=== PATIENT | male | born 1940 | race Caucasian/White ===

== ENCOUNTER 2016-10-22 17:54 | Emergency (ER) | payer OTHER, MEDICAID ==
[~2016-10-22] VITALS: Ht 152.4 cm; Wt 67.6 kg
[2016-10-22 21:04] LABS: BASOPHIL % 0.6 % (0-2); PLATELET COUNT 215 x10^3mcL (130-400)
[2016-10-22 21:05] LABS: RED CELL DISTRIBUTION WIDTH 14.7 % (11.5-14.5)
[2016-10-22 21:17] LABS: CALCIUM 8.6 mg/dL (8.5-10.1); CARBON DIOXIDE 27.1 mmol/L (21-32); CHLORIDE SERUM 104 mmol/L (98-107); CREATININE SERUM 1.9 mg/dL (0.7-1.3); GLUCOSE SERUM 220 mg/dL (74-106); POTASSIUM SERUM 3.9 mmol/L (3.5-5.1); SODIUM SERUM 141 mmol/L (136-145)
[2016-10-22 21:21] LABS: ALBUMIN 3.4 g/dL (3.4-5.0); ALKALINE PHOSPHATASE 147 U/L (46-116); ALT/SGPT 30 U/L (16-63); AMYLASE 43 U/L (25-115); AST/SGOT 16 U/L (15-37); BILIRUBIN TOTAL 0.3 mg/dL (0.20-1.00); LIPASE 139 IU/L (73-393); TOTAL PROTEIN, SERUM 7.4 g/dL (6.4-8.2)
[2016-10-22 21:26] LABS: UA SPECIFIC GRAVITY >=1.030 (1.005-1.035); microscopic required? YES; urine erythrocyte TRACE (NEGATIVE)
[2016-10-23 01:05] VITALS: BP 164/83
== END 2016-10-23 01:05 | disposition home or self-care (01) ==
LOC: ED 17:54
PROVIDERS: Emergency Medicine
DX: R51 Headache (principal); R10.32 Left lower quadrant pain; M79.1 Myalgia; E11.9 Type 2 diabetes mellitus without complications; I10 Essential (primary) hypertension
CPT/HCPCS: 36415

== ENCOUNTER 2016-11-29 16:35 | Emergency (ER) | payer OTHER, MEDICAID ==
[2016-11-29 19:23] VITALS: BP 195/94
== END 2016-11-29 19:23 | disposition home or self-care (01) ==
LOC: ED 16:35
DX: S62.613A Displaced fracture of proximal phalanx of left middle finger, initial encounter for closed fracture (principal); S62.615A Displaced fracture of proximal phalanx of left ring finger, initial encounter for closed fracture; I10 Essential (primary) hypertension; E11.9 Type 2 diabetes mellitus without complications; Z86.79 Personal history of other diseases of the circulatory system; W01.0XXA Fall on same level from slipping, tripping and stumbling without subsequent striking against object, initial encounter; Y93.89 Activity, other specified; Y99.8 Other external cause status; Y92.89 Other specified places as the place of occurrence of the external cause
CPT/HCPCS: Q0092

== ENCOUNTER 2016-12-09 18:33 | Emergency (ER) | payer OTHER, MEDICAID ==
[~2016-12-09] VITALS: Ht 157.5 cm; Wt 69.8 kg
[2016-12-09 21:03] LABS: BASOPHIL % 0.4 % (0-2); PLATELET COUNT 245 x10^3mcL (130-400); RED CELL DISTRIBUTION WIDTH 13.1 % (11.5-14.5)
[2016-12-09 21:16] LABS: CALCIUM 9.1 mg/dL (8.5-10.1); CARBON DIOXIDE 28.3 mmol/L (21-32); CHLORIDE SERUM 100 mmol/L (98-107); CREATININE SERUM 1.2 mg/dL (0.7-1.3); GLUCOSE SERUM 255 mg/dL (74-106); POTASSIUM SERUM 4.4 mmol/L (3.5-5.1); SODIUM SERUM 136 mmol/L (136-145)
[2016-12-10 00:04] VITALS: BP 147/80
== END 2016-12-10 00:04 | disposition home or self-care (01) ==
LOC: ED 18:33
PROVIDERS: Emergency Medicine Emergency Medical Services
DX: I16.0 Hypertensive urgency (principal); I10 Essential (primary) hypertension; E11.9 Type 2 diabetes mellitus without complications; Z79.84 Long term (current) use of oral hypoglycemic drugs
CPT/HCPCS: J3490

== ENCOUNTER 2017-08-13 09:16 | Inpatient (IN) | payer OTHER ==
[~2017-08-13] VITALS: Ht 167.6 cm; Wt 64.0 kg
[2017-08-13 09:25] VITALS: Ht 167.6 cm; Wt 64.0 kg
[2017-08-13 10:43] LABS: BASOPHIL % 0.3 % (0-2); PLATELET COUNT 229 x10^3mcL (130-400); RED CELL DISTRIBUTION WIDTH 13.4 % (11.5-14.5)
[2017-08-13 10:51] LABS: CARBON DIOXIDE 27.2 mmol/L (21-32); CHLORIDE SERUM 102 mmol/L (98-107); CREATININE SERUM 1.1 mg/dL (0.7-1.3); GLUCOSE SERUM 226 mg/dL (74-106); SODIUM SERUM 142 mmol/L (136-145)
[2017-08-13 10:54] LABS: ALKALINE PHOSPHATASE 180 U/L (46-116); AST/SGOT 24 U/L (15-37); BILIRUBIN TOTAL 0.42 mg/dL (0.20-1.00)
[2017-08-13 11:04] LABS: ALT/SGPT 31 U/L (16-63)
[2017-08-13 11:36] LABS: microscopic required? YES; urine erythrocyte TRACE (NEGATIVE)
[2017-08-13 13:18] VITALS: BP 196/101
[2017-08-13 13:46] LABS: CHOLESTEROL/HDL RATIO 4.3; MAGNESIUM 1.5 mg/dL (1.8-2.4); PHOSPHOROUS 4.4 mg/dL (2.5-4.9)
[2017-08-13 14:00] LABS: T3 TOTAL 0.95 ng/mL
[2017-08-13 14:15] LABS: FREE T4 1.1 ng/dL (0.76-1.46); FREE THYROXINE INDEX 2.4 ug/dL (1.4-4.5); T4(THYROXINE) 7.3 ug/dL (4.7-13.3)
[2017-08-13] MEDS ORDERED: LOSARTAN POTASS50 M1 PO (14:23)
[2017-08-13] MEDS ORDERED: METFORMIN HCL850 MG PO (14:24)
[2017-08-13 14:50] VITALS: BP 115/79
[2017-08-13] MEDS ORDERED: GABAPENTIN100 M2 PO (15:19)
[2017-08-13] MEDS ORDERED: VITAMIN D32000 I2 PO (15:21)
[2017-08-13] MEDS ORDERED: APAP500 MG PO (15:24)
[2017-08-13] MEDS ORDERED: LIPI10 PO (15:25)
[2017-08-13 16:30] VITALS: BP 177/86
[2017-08-13 17:22] VITALS: BP 156/83
[2017-08-13 20:27] VITALS: BP 160/81
[2017-08-14 05:32] VITALS: BP 149/84
[2017-08-14 06:18] LABS: BASOPHIL % 0.8 % (0-2); PLATELET COUNT 226 x10^3mcL (130-400)
[2017-08-14 06:27] LABS: CALCIUM 8.7 mg/dL (8.5-10.1); CARBON DIOXIDE 27.9 mmol/L (21-32); CHLORIDE SERUM 107 mmol/L (98-107); GLUCOSE SERUM 118 mg/dL (74-106); MAGNESIUM 1.6 mg/dL (1.8-2.4); PHOSPHOROUS 4.8 mg/dL (2.5-4.9); SODIUM SERUM 145 mmol/L (136-145)
[2017-08-14 09:36] VITALS: BP 157/76
[2017-08-14 13:24] VITALS: BP 159/80
[2017-08-14] MEDS ORDERED: LOSARTAN POTASS50 M1 PO (13:47)
[2017-08-14] MEDS ORDERED: GLIPIZIDE2.5 M1 PO (13:48)
[2017-08-14] MEDS ORDERED: METFORMIN HCL850 MG PO (13:48)
== END 2017-08-14 15:49 | disposition home or self-care (01) | DRG 77 ==
LOC: ED 09:16 → DU 12:08
PROVIDERS: Emergency Medicine; Family Medicine
DX: I67.4 Hypertensive encephalopathy (principal); N17.0 Acute kidney failure with tubular necrosis; E87.1 Hypo-osmolality and hyponatremia; D68.59 Other primary thrombophilia; E83.42 Hypomagnesemia; G90.8 Other disorders of autonomic nervous system; E11.65 Type 2 diabetes mellitus with hyperglycemia; E11.42 Type 2 diabetes mellitus with diabetic polyneuropathy; I10 Essential (primary) hypertension; R80.9 Proteinuria, unspecified; D64.9 Anemia, unspecified; E78.1 Pure hyperglyceridemia; Z68.25 Body mass index [BMI] 25.0-25.9, adult; Z79.84 Long term (current) use of oral hypoglycemic drugs
CPT/HCPCS: 82962; 83880; 84439; J0696; J3490; J7030; Q0092

== ENCOUNTER 2017-08-20 11:40 | Inpatient (IN) | payer OTHER ==
[~2017-08-20] VITALS: Ht 162.6 cm; Wt 73.1 kg
[~2017-08-20 11:40] MED LIST: APAP500 MG PO; GABAPENTIN100 M2 PO; GLIPIZIDE2.5 M1 PO; LIPI10 PO; LOSARTAN POTASS50 M1 PO; METFORMIN HCL850 MG PO; VITAMIN D32000 I2 PO
[2017-08-20 11:44] VITALS: Ht 162.6 cm; Wt 73.1 kg
[2017-08-20 12:37] LABS: PLATELET COUNT 215 x10^3mcL (130-400); RED CELL DISTRIBUTION WIDTH 13.7 % (11.5-14.5)
[2017-08-20 12:49] LABS: ALKALINE PHOSPHATASE 126 U/L (46-116); ALT/SGPT 21 U/L (16-63); AST/SGOT 28 U/L (15-37); BILIRUBIN TOTAL 0.4 mg/dL (0.20-1.00); CALCIUM 7.4 mg/dL (8.5-10.1); CHLORIDE SERUM 95 mmol/L (98-107); GLUCOSE SERUM 149 mg/dL (74-106); HDL CHOLESTEROL 38 mg/dL (40-60); LIPASE 136 IU/L (73-393); SODIUM SERUM 134 mmol/L (136-145); TOTAL PROTEIN, SERUM 6.6 g/dL (6.4-8.2); TRIGLYCERIDES 145 mg/dL (<150)
[2017-08-20 12:50] LABS: BASOPHIL % 0 % (0-2)
[2017-08-20 13:02] LABS: T3 TOTAL 0.52 ng/mL
[2017-08-20 13:09] LABS: CARBON DIOXIDE 7.6 mmol/L (21-32); CHOLESTEROL 108 mg/dL (<200); CHOLESTEROL/HDL RATIO 2.8; POTASSIUM SERUM 5.7 mmol/L (3.5-5.1)
[2017-08-20 13:18] LABS: FREE T4 0.9 ng/dL (0.76-1.46)
[2017-08-20 13:23] LABS: FREE THYROXINE INDEX 1.4 ug/dL (1.4-4.5); T4(THYROXINE) 4.4 ug/dL (4.7-13.3)
[2017-08-20] MEDS ORDERED: NEU300 PO (13:58)
[2017-08-20] MEDS ORDERED: PAIN & FEVER500 MG PO (13:59)
[2017-08-20] MEDS ORDERED: VITAMIN D32000 I2 PO (14:01)
[2017-08-20] MEDS ORDERED: GOOD SENSE ASPI81 M3 (14:01)
[2017-08-20 17:08] LABS: CALCIUM 8.3 mg/dL (8.5-10.1); CARBON DIOXIDE 11.7 mmol/L (21-32); CHLORIDE SERUM 97 mmol/L (98-107); GLUCOSE SERUM 163 mg/dL (74-106); POTASSIUM SERUM 5.2 mmol/L (3.5-5.1); SODIUM SERUM 137 mmol/L (136-145)
[2017-08-20 17:27] LABS: CREATININE SERUM 8.9 mg/dL (0.7-1.3)
[2017-08-20 18:32] VITALS: BP 133/70
[2017-08-20 19:45] VITALS: BP 113/57
[2017-08-20 20:06] LABS: MAGNESIUM 2.7 mg/dL (1.8-2.4)
[2017-08-20 20:47] LABS: PHOSPHOROUS 11.9 mg/dL (2.5-4.9)
[2017-08-20 23:56] VITALS: BP 165/94
[2017-08-21 03:33] VITALS: BP 163/90
[2017-08-21 05:51] LABS: CALCIUM 7.3 mg/dL (8.5-10.1); CARBON DIOXIDE 29.5 mmol/L (21-32); CHLORIDE SERUM 100 mmol/L (98-107); GLUCOSE SERUM 96 mg/dL (74-106); MAGNESIUM 1.7 mg/dL (1.8-2.4); PHOSPHOROUS 5.6 mg/dL (2.5-4.9); POTASSIUM SERUM 3.2 mmol/L (3.5-5.1); SODIUM SERUM 142 mmol/L (136-145)
[2017-08-21 05:54] LABS: CREATININE SERUM 5.3 mg/dL (0.7-1.3)
[2017-08-21 06:24] LABS: BASOPHIL % 0.3 % (0-2); PLATELET COUNT 176 x10^3mcL (130-400); RED CELL DISTRIBUTION WIDTH 13.9 % (11.5-14.5)
[2017-08-21 08:00] VITALS: BP 167/94
[2017-08-21 12:00] VITALS: BP 166/73
[2017-08-21 18:29] LABS: UA SPECIFIC GRAVITY 1.015 (1.005-1.035); microscopic required? YES; urine erythrocyte 3+ (NEGATIVE)
[2017-08-21 18:35] LABS: CALCIUM 7.2 mg/dL (8.5-10.1); CARBON DIOXIDE 33.2 mmol/L (21-32); CHLORIDE SERUM 98 mmol/L (98-107); GLUCOSE SERUM 123 mg/dL (74-106); POTASSIUM SERUM 3.9 mmol/L (3.5-5.1); SODIUM SERUM 140 mmol/L (136-145)
[2017-08-21 18:39] LABS: CREATININE SERUM 6.4 mg/dL (0.7-1.3)
[2017-08-21 18:46] LABS: AMPHETAMINE QUAL UR NONE DETECTED (See below)
[2017-08-21 20:38] VITALS: BP 161/81
[2017-08-21 23:41] VITALS: BP 135/74
[2017-08-22 03:03] VITALS: BP 154/87
[2017-08-22 05:02] LABS: PLATELET COUNT 183 x10^3mcL (130-400); RED CELL DISTRIBUTION WIDTH 14.2 % (11.5-14.5)
[2017-08-22 05:06] LABS: BASOPHIL % 0 % (0-2)
[2017-08-22 05:16] LABS: CARBON DIOXIDE 27.5 mmol/L (21-32); CHLORIDE SERUM 97 mmol/L (98-107); GLUCOSE SERUM 192 mg/dL (74-106); MAGNESIUM 2.2 mg/dL (1.8-2.4); PHOSPHOROUS 6.6 mg/dL (2.5-4.9); POTASSIUM SERUM 4.7 mmol/L (3.5-5.1); SODIUM SERUM 138 mmol/L (136-145)
[2017-08-22 05:22] LABS: CREATININE SERUM 7.2 mg/dL (0.7-1.3)
[2017-08-22 07:58] VITALS: BP 121/62
[2017-08-22 12:20] VITALS: BP 148/70
[2017-08-22 19:45] VITALS: BP 137/73
[2017-08-22 23:15] VITALS: BP 139/50
[2017-08-23 03:15] VITALS: BP 148/74
[2017-08-23 05:25] LABS: BASOPHIL % 1.2 % (0-2); PLATELET COUNT 183 x10^3mcL (130-400); RED CELL DISTRIBUTION WIDTH 13.8 % (11.5-14.5)
[2017-08-23 05:35] LABS: CALCIUM 7.3 mg/dL (8.5-10.1); CARBON DIOXIDE 27.6 mmol/L (21-32); CHLORIDE SERUM 100 mmol/L (98-107); GLUCOSE SERUM 186 mg/dL (74-106); MAGNESIUM 1.9 mg/dL (1.8-2.4); PHOSPHOROUS 4.6 mg/dL (2.5-4.9); SODIUM SERUM 136 mmol/L (136-145)
[2017-08-23 08:25] VITALS: BP 97/69
[2017-08-23 13:30] VITALS: BP 134/63
[2017-08-23 16:37] VITALS: BP 150/69
[2017-08-23 19:35] VITALS: BP 130/71
[2017-08-24 06:04] VITALS: BP 128/66
[2017-08-24 06:23] LABS: CALCIUM 7.7 mg/dL (8.5-10.1); CARBON DIOXIDE 28.9 mmol/L (21-32); CHLORIDE SERUM 97 mmol/L (98-107); GLUCOSE SERUM 158 mg/dL (74-106); MAGNESIUM 2.8 mg/dL (1.8-2.4); PHOSPHOROUS 5.4 mg/dL (2.5-4.9); POTASSIUM SERUM 3.7 mmol/L (3.5-5.1); SODIUM SERUM 136 mmol/L (136-145)
[2017-08-24 06:55] LABS: CREATININE SERUM 7.6 mg/dL (0.7-1.3)
[2017-08-24 07:01] LABS: BASOPHIL % 0.3 % (0-2); PLATELET COUNT 193 x10^3mcL (130-400); RED CELL DISTRIBUTION WIDTH 13.7 % (11.5-14.5)
[2017-08-24 08:00] VITALS: BP 150/60
[2017-08-24 13:18] VITALS: BP 143/66
[2017-08-24 17:40] VITALS: BP 144/76
[2017-08-24 20:35] VITALS: BP 161/77
[2017-08-25 05:46] VITALS: BP 161/73
[2017-08-25 05:50] VITALS: BP 159/82
[2017-08-25 06:34] LABS: BASOPHIL % 0.3 % (0-2); PLATELET COUNT 206 x10^3mcL (130-400); RED CELL DISTRIBUTION WIDTH 13.5 % (11.5-14.5)
[2017-08-25 06:55] LABS: CALCIUM 7.6 mg/dL (8.5-10.1); CARBON DIOXIDE 31.1 mmol/L (21-32); CHLORIDE SERUM 101 mmol/L (98-107); GLUCOSE SERUM 131 mg/dL (74-106); MAGNESIUM 2.1 mg/dL (1.8-2.4); PHOSPHOROUS 4.2 mg/dL (2.5-4.9); POTASSIUM SERUM 3.9 mmol/L (3.5-5.1); SODIUM SERUM 141 mmol/L (136-145)
[2017-08-25 07:00] LABS: CREATININE SERUM 5.9 mg/dL (0.7-1.3)
[2017-08-25 09:50] VITALS: BP 167/76
[2017-08-25 13:38] VITALS: BP 142/73
[2017-08-25 16:24] VITALS: BP 145/68
[2017-08-25 20:49] LABS: CK-BB 0 % (0); CK-MB 5 % (0-3); CK-MM 95 % (97-100); MACRO TYPE 1 0 % (Not Observed); MACRO TYPE 2 0 % (Not Observed)
[2017-08-26 05:01] VITALS: BP 161/76
[2017-08-26 06:15] LABS: BASOPHIL % 0.4 % (0-2); PLATELET COUNT 246 x10^3mcL (130-400); RED CELL DISTRIBUTION WIDTH 13.5 % (11.5-14.5)
[2017-08-26 06:29] LABS: CALCIUM 8.1 mg/dL (8.5-10.1); CHLORIDE SERUM 97 mmol/L (98-107); GLUCOSE SERUM 147 mg/dL (74-106); POTASSIUM SERUM 3.7 mmol/L (3.5-5.1); SODIUM SERUM 138 mmol/L (136-145)
[2017-08-26 06:38] LABS: CREATININE SERUM 7.2 mg/dL (0.7-1.3)
[2017-08-26 09:22] VITALS: BP 169/73
[2017-08-26 17:44] VITALS: BP 152/73
[2017-08-26 21:02] VITALS: BP 139/62
[2017-08-27 00:21] VITALS: BP 117/55
[2017-08-27 06:15] VITALS: BP 153/76
[2017-08-27 07:05] LABS: BASOPHIL % 0.4 % (0-2); PLATELET COUNT 251 x10^3mcL (130-400); RED CELL DISTRIBUTION WIDTH 14.1 % (11.5-14.5)
[2017-08-27 07:27] LABS: CALCIUM 8.5 mg/dL (8.5-10.1); CARBON DIOXIDE 35.3 mmol/L (21-32); CHLORIDE SERUM 98 mmol/L (98-107); GLUCOSE SERUM 134 mg/dL (74-106); PHOSPHOROUS 4.9 mg/dL (2.5-4.9); POTASSIUM SERUM 3.4 mmol/L (3.5-5.1); SODIUM SERUM 140 mmol/L (136-145)
[2017-08-27 07:41] LABS: CREATININE SERUM 5.2 mg/dL (0.7-1.3)
[2017-08-27 08:58] VITALS: BP 139/61
[2017-08-27 14:01] VITALS: BP 157/74
[2017-08-27] MEDS ORDERED: LAC PO (14:36)
[2017-08-27] MEDS ORDERED: LEVAQUIN500 M1 PO (14:36)
[2017-08-27] MEDS ORDERED: NEU100 PO (14:37)
[2017-08-27] MEDS ORDERED: CLEOCIN HCL300 MG PO (14:40)
[2017-08-27 14:55] VITALS: BP 157/74
== END 2017-08-27 16:16 | disposition home health service (06) | DRG 871 ==
LOC: ED 11:40 → IC 13:24 → DU 13:24 → IC 15:56 → DU 08-23 13:25
PROVIDERS: Family Medicine; Family Medicine Sports Medicine; Specialist
PROC: 0JH63XZ Insertion of Tunneled Vascular Access Device into Chest Subcutaneous Tissue and Fascia, Percutaneous Approach (ICD-10-PCS; principal; 2017-08-20)
PROC: 05HM33Z Insertion of Infusion Device into Right Internal Jugular Vein, Percutaneous Approach (ICD-10-PCS; 2017-08-20)
PROC: B543ZZA Ultrasonography of Right Jugular Veins, Guidance (ICD-10-PCS; 2017-08-20)
PROC: 5A1D70Z Performance of Urinary Filtration, Intermittent, Less than 6 Hours Per Day (ICD-10-PCS; 2017-08-20)
PROC: 5A1D70Z Performance of Urinary Filtration, Intermittent, Less than 6 Hours Per Day (ICD-10-PCS; 2017-08-22)
PROC: 5A1D70Z Performance of Urinary Filtration, Intermittent, Less than 6 Hours Per Day (ICD-10-PCS; 2017-08-24)
PROC: 5A1D70Z Performance of Urinary Filtration, Intermittent, Less than 6 Hours Per Day (ICD-10-PCS; 2017-08-26)
PROC: 05PYX3Z Removal of Infusion Device from Upper Vein, External Approach (ICD-10-PCS; 2017-08-26)
PROC: 02HV33Z Insertion of Infusion Device into Superior Vena Cava, Percutaneous Approach (ICD-10-PCS; 2017-08-26)
PROC: B5181ZA Fluoroscopy of Superior Vena Cava using Low Osmolar Contrast, Guidance (ICD-10-PCS; 2017-08-26)
DX: A41.9 Sepsis, unspecified organism (principal); R65.21 Severe sepsis with septic shock; N17.0 Acute kidney failure with tubular necrosis; G93.41 Metabolic encephalopathy; I50.43 Acute on chronic combined systolic (congestive) and diastolic (congestive) heart failure; J96.01 Acute respiratory failure with hypoxia; E87.2 Acidosis; E44.0 Moderate protein-calorie malnutrition; N10 Acute pyelonephritis; N39.0 Urinary tract infection, site not specified; K72.90 Hepatic failure, unspecified without coma; E87.5 Hyperkalemia; I16.0 Hypertensive urgency; I11.0 Hypertensive heart disease with heart failure; E86.0 Dehydration; T38.3X5A Adverse effect of insulin and oral hypoglycemic [antidiabetic] drugs, initial encounter; E11.65 Type 2 diabetes mellitus with hyperglycemia; E11.21 Type 2 diabetes mellitus with diabetic nephropathy; E11.51 Type 2 diabetes mellitus with diabetic peripheral angiopathy without gangrene; E11.40 Type 2 diabetes mellitus with diabetic neuropathy, unspecified; M47.896 Other spondylosis, lumbar region; E78.5 Hyperlipidemia, unspecified; E66.9 Obesity, unspecified; Z68.25 Body mass index [BMI] 25.0-25.9, adult; Z79.82 Long term (current) use of aspirin; Z79.84 Long term (current) use of oral hypoglycemic drugs; Y92.009 Unspecified place in unspecified non-institutional (private) residence as the place of occurrence of the external cause
CPT/HCPCS: 36556; 36600; 82962; 83880; 84439; 86580; 87046; 87046-59; 94150; 97110-GP; 97116-GP; 97530-GP; 97535-GP; A4301; A4719; J1642; J1644; J1815; J1885; J1940; J2001; J2060; J2250; J2405; J2543; J2597; J3010; J3475; J3490; J7030; J7040; J7050; Q0092

== ENCOUNTER 2018-05-03 09:25 | Emergency (ER) | payer OTHER ==
[~2018-05-03] VITALS: Ht 162.6 cm; Wt 68.0 kg
[~2018-05-03 09:25] MED LIST changes: +CLEOCIN HCL300 MG PO; +GOOD SENSE ASPI81 M3; +LAC PO; +LEVAQUIN500 M1 PO; +NEU100 PO; +NEU300 PO; +PAIN & FEVER500 MG PO
[2018-05-03 09:33] VITALS: Ht 162.6 cm; Wt 68.0 kg
[2018-05-03 12:00] VITALS: BP 120/66
== END 2018-05-03 13:00 | disposition home or self-care (01) ==
LOC: ED 09:25
DX: E11.65 Type 2 diabetes mellitus with hyperglycemia (principal); I10 Essential (primary) hypertension; Z90.49 Acquired absence of other specified parts of digestive tract; Z90.89 Acquired absence of other organs; Z98.890 Other specified postprocedural states
CPT/HCPCS: 82962; J1815

== ENCOUNTER 2018-11-25 19:10 | Emergency (ER) | payer OTHER, MEDICAID ==
[~2018-11-25] VITALS: Ht 157.5 cm; Wt 73.0 kg
[2018-11-25 19:15] VITALS: Ht 157.5 cm; Wt 73.0 kg
[2018-11-25 20:17] LABS: BASOPHIL % 0.9 % (0-2); PLATELET COUNT 219 x10^3mcL (130-400); RED CELL DISTRIBUTION WIDTH 13.8 % (11.5-14.5)
[2018-11-25 20:44] LABS: CARBON DIOXIDE 28.7 mmol/L (21-32); CHLORIDE SERUM 100 mmol/L (98-107); CREATININE SERUM 1.6 mg/dL (0.7-1.3); GLUCOSE SERUM 234 mg/dL (74-106); POTASSIUM SERUM 4.8 mmol/L (3.5-5.1); SODIUM SERUM 136 mmol/L (136-145)
[2018-11-25 20:49] LABS: ALBUMIN 3.7 g/dL (3.4-5.0); ALKALINE PHOSPHATASE 131 U/L (46-116); ALT/SGPT 19 U/L (16-63); AST/SGOT 15 U/L (15-37); BILIRUBIN TOTAL 0.25 mg/dL (0.20-1.00); TOTAL PROTEIN, SERUM 7.5 g/dL (6.4-8.2)
[2018-11-25 23:07] VITALS: BP 124/56
== END 2018-11-25 23:07 | disposition home or self-care (01) ==
LOC: ED 19:10
PROVIDERS: Emergency Medicine
DX: R60.0 Localized edema (principal); E11.42 Type 2 diabetes mellitus with diabetic polyneuropathy; I10 Essential (primary) hypertension; Z90.49 Acquired absence of other specified parts of digestive tract; Z90.89 Acquired absence of other organs; Z98.890 Other specified postprocedural states
CPT/HCPCS: 82962; 83880; J1940; Q0092

== ENCOUNTER 2019-01-31 17:36 | Emergency (ER) | payer OTHER, MEDICAID ==
[2019-01-31 18:35] LABS: CALCIUM 8.3 mg/dL (8.5-10.1); CARBON DIOXIDE 27.2 mmol/L (21-32); CHLORIDE SERUM 96 mmol/L (98-107); CREATININE SERUM 2.1 mg/dL (0.7-1.3); POTASSIUM SERUM 4.4 mmol/L (3.5-5.1); SODIUM SERUM 133 mmol/L (136-145)
[2019-01-31 18:38] LABS: BASOPHIL % 0.8 % (0-2); PLATELET COUNT 224 x10^3mcL (130-400); RED CELL DISTRIBUTION WIDTH 14.1 % (11.5-14.5)
[2019-01-31 18:40] LABS: GLUCOSE SERUM 457 mg/dL (74-106)
[2019-01-31 20:13] VITALS: BP 132/62
== END 2019-01-31 20:55 | disposition home or self-care (01) ==
LOC: ED 17:36
PROVIDERS: Emergency Medicine
DX: M54.5 Low back pain (principal); E11.65 Type 2 diabetes mellitus with hyperglycemia; I10 Essential (primary) hypertension
CPT/HCPCS: 36415

== ENCOUNTER 2019-02-09 12:05 | Emergency (ER) | payer OTHER, MEDICAID ==
[~2019-02-09] VITALS: Ht 160 cm; Wt 68.9 kg
[2019-02-09 12:09] VITALS: Ht 160 cm; Wt 68.9 kg
[2019-02-09 13:48] LABS: CALCIUM 8.1 mg/dL (8.5-10.1); CARBON DIOXIDE 26.6 mmol/L (21-32); CHLORIDE SERUM 99 mmol/L (98-107); CREATININE SERUM 1.7 mg/dL (0.7-1.3); POTASSIUM SERUM 4.6 mmol/L (3.5-5.1); SODIUM SERUM 133 mmol/L (136-145)
[2019-02-09 14:00] LABS: GLUCOSE SERUM 493 mg/dL (74-106)
[2019-02-09 14:30] VITALS: BP 145/65
== END 2019-02-09 15:32 | disposition home or self-care (01) ==
LOC: ED 12:05
PROVIDERS: Emergency Medicine
DX: E11.65 Type 2 diabetes mellitus with hyperglycemia (principal); R51 Headache; I10 Essential (primary) hypertension
CPT/HCPCS: 82962; J1815; J1885; J7030

== ENCOUNTER 2019-06-19 21:44 | Emergency (ER) | payer OTHER ==
[~2019-06-19] VITALS: Ht 162.6 cm; Wt 81.6 kg
[2019-06-19 21:51] VITALS: Ht 162.6 cm; Wt 81.6 kg
[2019-06-19] MEDS ORDERED: LIPITOR10 MG PO (22:37)
[2019-06-19] MEDS ORDERED: ADALAT CC30 MG PO (22:37)
[2019-06-19] MEDS ORDERED: TRIGLIDE160 M1 PO (22:38)
[2019-06-19] MEDS ORDERED: ACTOS30 M1 PO (22:38)
[2019-06-19 23:17] LABS: BASOPHIL % 0.6 % (0-2); PLATELET COUNT 178 x10^3mcL (130-400)
[2019-06-20 00:52] LABS: CALCIUM 8.7 mg/dL (8.5-10.1); CARBON DIOXIDE 28.1 mmol/L (21-32); CHLORIDE SERUM 101 mmol/L (98-107); CREATININE SERUM 1.6 mg/dL (0.7-1.3); GLUCOSE SERUM 313 mg/dL (74-106); POTASSIUM SERUM 3.8 mmol/L (3.5-5.1); SODIUM SERUM 138 mmol/L (136-145)
[2019-06-20 00:57] LABS: ALBUMIN 3.9 g/dL (3.4-5.0); ALKALINE PHOSPHATASE 84 U/L (46-116); ALT/SGPT 23 U/L (16-63); AST/SGOT 16 U/L (15-37); BILIRUBIN TOTAL 0.3 mg/dL (0.20-1.00); MAGNESIUM 2.1 mg/dL (1.8-2.4); TOTAL PROTEIN, SERUM 7.4 g/dL (6.4-8.2)
[2019-06-20 01:47] VITALS: BP 116/56
== END 2019-06-20 01:47 | disposition home or self-care (01) ==
LOC: ED 21:44
PROVIDERS: Emergency Medicine
DX: E11.65 Type 2 diabetes mellitus with hyperglycemia (principal); R42 Dizziness and giddiness; I10 Essential (primary) hypertension; E11.9 Type 2 diabetes mellitus without complications; E78.00 Pure hypercholesterolemia, unspecified
CPT/HCPCS: 82962; J1815; J7030; Q0092

== ENCOUNTER 2019-09-01 11:44 | Emergency (ER) | payer OTHER ==
[~2019-09-01] VITALS: Ht 149.9 cm; Wt 68.5 kg
[~2019-09-01 11:44] MED LIST changes: +ACTOS30 M1 PO; +ADALAT CC30 MG PO; +LIPITOR10 MG PO; +TRIGLIDE160 M1 PO
[2019-09-01 11:56] VITALS: Ht 149.9 cm; Wt 68.5 kg
[2019-09-01 13:22] VITALS: BP 137/59
== END 2019-09-01 13:22 | disposition home or self-care (01) ==
LOC: ED 11:44
DX: S22.42XA Multiple fractures of ribs, left side, initial encounter for closed fracture (principal); I10 Essential (primary) hypertension; E11.9 Type 2 diabetes mellitus without complications; E78.00 Pure hypercholesterolemia, unspecified; W01.0XXA Fall on same level from slipping, tripping and stumbling without subsequent striking against object, initial encounter; Y93.89 Activity, other specified; Y92.89 Other specified places as the place of occurrence of the external cause; Y99.8 Other external cause status